=== PATIENT | female | born 1970 | race Caucasian/White ===

== ENCOUNTER → 2017-04-13 | Day surgery (SDC) | payer OTHER ==
[~2017-04-13] MED LIST: KETOROLAC TROMETHAMINE 30 MG/ML (IVP) VIAL IV PUSH ONE; LACTATED RINGER'S 1000 ML INJ 1,000 ML ONE; MIDAZOLAM HCL 2 MG/2 ML VIAL ONE; ONDANSETRON HCL 4 MG/2 ML VIAL IV PUSH ONE; PROPOFOL 200 MG/20 ML AMP IV ONE; ceFAZolin 2 GM PREMIX 50 ML ONE
--- NOTE | 2017-04-13 16:19 | MP ---
cc: ETTA MARR MD DATE OF SURGERY: 04/13/2017 PREOPERATIVE DIAGNOSIS Menorrhagia. POSTOPERATIVE DIAGNOSIS Menorrhagia. SURGEON Etta Marr MD [employer] [facility] staff. PROCEDURE PERFORMED Exam under anesthesia, hysteroscopy, NovaSure ablation, endometrial curettage. INDICATION The patient is a 46-year-old female with menorrhagia. She elected for an ablation. Endometrial biopsy in the office was benign but had suggestions of benign endometrial polyp. The risks, benefits, alternatives were discussed. The patient desired to proceed with hysteroscopy and NovaSure ablation under anesthesia. ANESTHESIA LMA. IV FLUIDS 450 mL of lactated Ringer's. ESTIMATED BLOOD LOSS Minimal. URINE OUTPUT 30 mL. INTRAOPERATIVE FINDINGS Uterus 8 cm in total length. The uterine cavity 4.5 cm long with a width of 3 cm. NovaSure power set to 74, time deployed 100 seconds. COMPLICATIONS None. SPECIMENS Endometrial curettes. DVT PROPHYLAXIS SCDs bilateral extremities. ANTIBIOTIC Ancef given preoperatively. DISPOSITION Stable to PACU. PROCEDURE IN DETAIL After reviewing informed consent, the patient was taken to the operating room where general LMA was performed without complication. She was placed in dorsal lithotomy position in [facility] stirrups. The perineum was prepped and draped in normal sterile fashion. A bivalve speculum was placed in the vagina. Single-tooth tenaculum was placed in the anterior lip of the cervix. The uterine cavity length was sounded to 4.5 cm. The diagnostic hysteroscopy was performed, no polyps were noted. Bilateral ostia were visualized, normal uterine cavity. On bimanual exam the uterus was anteverted, no adnexal masses were appreciated. The cervix was dilated, prior to introduction of the hysteroscope, the NovaSure device was introduced into the uterus. The width was calibrated at 3 cm. The device was deployed for 100 seconds. The NovaSure device was then removed. The single-tooth tenaculum was removed. Sponge was used to apply pressure and no bleeding was noted. The speculum was removed. The patient was placed in dorsal supine position. Anesthesia was reversed without complication. She was taken to PACU in stable condition. Etta Marr MD PE/TLL /11:02 AM /3:45 PM [facility]
== END | disposition home or self-care (01) ==
LOC: ESDC 09:29
PROVIDERS: ATTEND Obstetrics & Gynecology
DX: N92.0 Excessive and frequent menstruation with regular cycle (principal)
CPT/HCPCS: 00952; 58563; 88305; J0690; J1885; J2250; J2405; J3010; J7120